=== PATIENT | female | born 1980 | race Caucasian/White ===

== ENCOUNTER 2021-06-12 08:59 | Emergency (ER) | payer OTHER, BC ==
[2021-06-12] MEDS ORDERED: HYDROmorphone 0.5 MG/0.5 ML Syringe IVPUSH ONE (09:04)
--- NOTE | 2021-06-12 09:26 | EDM.PDOC ---
ED HPI GENERAL MEDICAL PROBLEM - General Chief Complaint: Upper Extremity Injury/Pain Stated Complaint: FELL OUTSIDE POSSIBLE BROKEN WRIST Time Seen by Provider: 06/12/21 09:25 Source of Information: Reports: Patient History Limitations: Reports: No Limitations - History of Present Illness INITIAL COMMENTS - FREE TEXT/NARRATIVE: pt arrived with severe pain in the rt wrist with sig deformity. She was out in front of the clinic and fell on the ice. She did not injure herself otherwise. She does not have other medical problems. She did eat 1 hour ago. Onset: Today, Sudden Duration: Minutes: Location: Reports: Upper Extremity, Right Associated Symptoms: Reports: No Other Symptoms Right Wrist Pain Score (Numeric/FACES): 5 - Related Data Allergies Allergy/AdvReac Type Severity Reaction Status Date / Time No Known Allergies Allergy Verified 06/12/21 09:22 Home Meds: Home Meds Trimethoprim 100 mg PO ASDIRECTED PRN 04/23/15 [History] Past Medical History - Past Health History Medical/Surgical History: Denies Medical/Surgical History Other Cardiovascular History: varicose veins - Past Surgical History Other HEENT Surgeries/Procedures: wisdom teeth removed Review of Systems - Review of Systems Review Of Systems: See Below Constitutional: Reports: No Symptoms Eyes: Reports: No Symptoms Ears: Reports: No Symptoms Nose: Reports: No Symptoms Mouth/Throat: Reports: No Symptoms Respiratory: Reports: No Symptoms Cardiovascular: Reports: No Symptoms GI/Abdominal: Reports: No Symptoms Genitourinary: Reports: No Symptoms Musculoskeletal: Reports: Other ( severe rt wrist pain) Skin: Reports: No Symptoms ED EXAM, GENERAL - Physical Exam Exam: See Below Free Text/Narrative:: ptarrived with severe pain in rt wrist. She fell on the ice in front of the clinic. Exam Limited By: No Limitations General Appearance: Alert, Anxious, Severe Distress Ears: Normal External Exam Nose: Normal Inspection Throat/Mouth: Normal Inspection Head: Atraumatic Neck: Normal Inspection Respiratory/Chest: No Respiratory Distress Cardiovascular: Regular Rate, Rhythm GI/Abdominal: Soft (Female) Exam: Deferred Rectal (Female) Exam: Deferred Back Exam: Normal Inspection Extremities: Other (rt wrist is very deformed and painful from the fall. She does have a good pulse present. ) Neurological: Alert, Oriented, Normal Cognition Psychiatric: Anxious Course - Vital Signs Last Recorded V/S: Last Vital Signs Temp 36.6 C 06/12/21 09:16 Pulse 58 L 06/12/21 09:59 Resp 11 L 06/12/21 09:59 BP 112/74 06/12/21 09:59 Pulse Ox 100 06/12/21 09:59 - Orders/Labs/Meds Meds: Medications Discontinued Medications Generic Name Dose Route Start Last Admin Trade Name Cait PRN Reason Stop Dose Admin Hydromorphone HCl 0.5 mg 06/12/21 09:04 06/12/21 09:13 Hydromorphone 0.5 Mg/0.5 Ml Syringe IVPUSH 06/12/21 09:05 0.5 mg ONETIME ONE Administration Ketorolac Tromethamine 30 mg 06/12/21 09:32 06/12/21 09:48 Ketorolac 30 Mg/Ml Sdv IVPUSH 06/12/21 09:33 30 mg ONETIME ONE Administration Propofol Confirm 06/12/21 10:40 Propofol 200 Mg/20 Ml Sdv Administered 06/12/21 10:41 Dose 200 mg .ROUTE .STK-MED ONE - Re-Assessments/Exams Free Text/Narrative Re-Assessment/Exam: 06/12/21 10:35 xray showed a displaced colles fracture. Dr escobar reduced under anesthesia. He will follow to be sure it stays in good alignment. Pt was given dilaudid .5. 06/15/21 07:35 Departure - Departure Time of Disposition: 11:50 Disposition: Home, Self-Care 01 Condition: Fair Clinical Impression: Fracture of right wrist - Discharge Information Instructions: Closed Reduction for Wrist or Forearm, Care After, Wrist Fracture Treated With Immobilization Referrals: Rene Jack MD [Primary Care Provider] - Forms: ED Department Discharge Care Plan Goals: appt with Dr Fang next week, elevate, cool pack over splint, sling when up and about, norco 5/325 q6h prn for pain.
[2021-06-12] MEDS ORDERED: Ketorolac 30 MG/ML SDV IVPUSH ONE (09:32)
--- NOTE | 2021-06-12 09:42 | CR ---
Wrist Comp Min 3V Rt CLINICAL HISTORY: Fall, injury FINDINGS: There is an impacted comminuted fracture of the distal radius. There is some dorsal angulation. Distal ulna appears intact. Impression: Fracture distal radius
[2021-06-12 10:00] VITALS: BP 112/74; PULSE 58
[2021-06-12] MEDS ORDERED: Propofol 200 MG/20 ML SDV ONE (10:40)
--- NOTE | 2021-06-12 11:08 | CR ---
Wrist 2V Rt CLINICAL HISTORY: Postreduction FINDINGS: There has been reduction in angulation of the comminuted distal radial fracture. Cast in place Impression: Post radial fracture reduction and cast
== END 2021-06-12 11:48 | disposition home or self-care (01) ==
LOC: JP.ED 08:59
DX: S52.531A Colles' fracture of right radius, initial encounter for closed fracture (principal); W18.30XA Fall on same level, unspecified, initial encounter
CPT/HCPCS: 25605; 73100; 73110; 96374; 96375; 99283; J1170; J1885; J2704